=== PATIENT | female | born 1975 | race African-American/Black ===

== ENCOUNTER 2016-12-18 15:00 | Inpatient (IN) | payer OTHER ==
[~2016-12-18] VITALS: Ht 165.1 cm; Wt 63.5 kg
--- NOTE | ~2016-12-18 | DS ---
Unit #: [id number] #: [id number] Patient: MARY GODINEZ [id number] [facility] [address] [place] [address] [id number] MR#: [id number] NAME: MARY GODINEZ. ROOM: [facility] Age: 41 Sex: F Admission Date: 12/18/2016 : 1975 Discharge Date: 12/19/2016 Attending Physician: Duane Arevalo M.D. Primary Care Physician: Primary Care Physician No DISCHARGE SUMMARY REASON FOR ADMISSION Depression, anxiety. DIAGNOSTIC STUDIES LABORATORY DATA: Unremarkable except hemoglobin 8.4. HOSPITAL COURSE The patient was admitted to inpatient unit on 12/18/2016 and discharged on 12/19/2016. The patient was pleasant, cooperative. Denied any suicidal or homicidal ideation. Able to participate in programming. The patient's hemoglobin was low. That may be the reason why she was feeling tired. DISCHARGE MEDICATIONS The patient was discharged on following medications: 1. Vistaril 25 mg 3 times a day for anxiety. DISCHARGE DIAGNOSES PSYCHIATRIC: Anxiety disorder not otherwise specified, F40.01 Rule out major depressive disorder, recurrent, severe. SECONDARY: Deferred. MEDICAL: Hypertension. STRESSORS: Psychosocial stressor. FOLLOWUP CARE The patient to follow up in outpatient clinic as per social scientist. Also, advised to follow up with medical doctor for low hemoglobin. CONDITION ON DISCHARGE The patient pleasant, cooperative. Denied any thoughts of harming self or others or any psychotic symptom. Recent and remote memory: Poor. DIET AND ACTIVITY As tolerated. Dictated by... Matthew Gibson/paxton TD: 12/20/2016 06:51 JOB #: [id number] Unit #: [id number] #: [id number] Patient: MARY GODINEZ DISCHARGE SUMMARY Page 1 of 1 X Duane Arevalo MD X DISCHARGE SUMMARY
--- NOTE | ~2016-12-18 | PA ---
Unit #: [id number] #: [id number] Patient: MARELY SIMMONS [id number] [facility] [address] [place] [address] [id number] MR#: [id number] NAME: MARELY SIMMONS. ROOM: P266 Age: 41 Sex: F Admission Date: 12/18/2016 : 1975 Date of Assessment: 12/19/2016 Attending Physician: Duane Arevalo M.D. Admitting Physician: Duane Arevalo M.D. Primary Care Physician: Primary Care Physician No PSYCHIATRIC ASSESSMENT INFORMANTS The patient reliability, fair informant and chart reliability, good. CHIEF COMPLAINT Anxiety. HISTORY OF PRESENT ILLNESS Ms. Marely Simmons is a 41-year-old female, presented with the above-mentioned complaint. The patient reported increase in panic attack. The patient reports having a nervous breakdown. The patient also reported feeling sad, depressed, making vague statements about harming herself. The patient reports that she lives with her mother, 64, retired. The patient reported increasing anxiety and panic attack. She has had 20 visits in the emergency room due to increase in symptoms. She was seen in [facility] on 12/15/2016 and referred to Partial. The patient stated that she is unable to get out due to her anxiety and panic attack. The patient dealing with increased grief due to loss of her family member. The patient reports that she is on Lexapro, but it is not working. The patient denied any homicidal ideation. Passive SI. Needing inpatient admission for psychiatric stabilization. PAST PSYCHIATRIC HISTORY Remarkable for history of outpatient treatment, details unknown at this time. No history of any suicide attempt. FAMILY HISTORY AND SOCIAL HISTORY Remarkable for history of depression in mother. No known history of any abuse or legal problems. MEDICAL HISTORY Remarkable for history of hypertension. Musculoskeletal; muscle strength and tone, no atrophy or abnormal movement. Gait normal. MEDICATION HISTORY The patient is on Lexapro, Vistaril, clonidine, and nifedipine. ALLERGIES No known drug allergies. SUBSTANCE ABUSE HISTORY None. REVIEW OF SYSTEMS Unit #: [id number] #: [id number] Patient: MARELY SIMMONS HEENT: Eyes, clear. Ears, nose, mouth, and throat; clear. CARDIOVASCULAR: Unremarkable. RESPIRATORY: Unremarkable. GI: Unremarkable. : Unremarkable. SKIN: Unremarkable. LYMPH NODE: Unremarkable. NEUROLOGIC: Unremarkable. ENDOCRINE: Unremarkable. HEMATOLOGIC: Unremarkable. ALLERGIC/IMMUNOLOGIC: Unremarkable. MUSCULOSKELETAL: Muscle strength and tone, no atrophy or abnormal movement. Gait normal. MENTAL STATUS EXAMINATION CONSTITUTIONAL: Measurement of vital signs; temperature 98.8, heart rate 80, respiratory rate 19, oxygen saturation 98%, and blood pressure 130/98. Height 5 feet 5 inches and weight 140 pounds. GENERAL APPEARANCE: The patient dressed casually. The patient not show any facial deformity. MUSCULOSKELETAL: Please see above. PSYCHIATRIC EXAMINATION Description of speech; regular rate, normal volume, normal articulation, and coherent. Description of thought process, goal directed. The patient denied any thoughts of harming self or others at this time. Denied any psychotic symptom, but reported anxiety and panic attack. Description of the patient's judgment: Concerning everyday activity, poor. Social situation, poor. Concerning psychiatric condition, poor. Complete mental status examination; oriented in time, place, and person. Recent and remote memory, fair. Attention span and concentration, fair. Language, able to name object and repeat phrases. Fund of knowledge, aware of current event and passive vocabulary intact. Mood and affect, sad and dysphoric. Insight and judgment, fair to poor. ASSETS AND LIABILITIES Assets, the patient is articulate and able to take care of her ADL. Liability, history of depression and anxiety. ADMITTING DIAGNOSES Psychiatric: Major depressive disorder, recurrent, severe, F33.2 and anxiety disorder, not otherwise specified, F40.01. Secondary diagnosis: Deferred. Medical diagnosis: Hypertension. Stressors: Psychosocial stressors. PSYCHIATRIC PLAN AND TREATMENT GOAL AND DISCHARGE PLAN 1. Advised to admit the patient on the inpatient unit. Provide safe, supportive, and structured environment. 2. Ordered labs; CBC, CMP, UA, and UDS. 3. Advised to discontinue Lexapro and consider medication such as Vistaril. The patient was agreeable for outpatient treatment. The patient to attend group therapy, individual therapy, and structured milieu. Treatment goal to attain euthymic mood, gain insight into her Unit #: [id number] #: [id number] Patient: MARELY SIMMONS problem, and learn coping skills. DISCHARGE PLAN Plan to stabilize the patient and consider followup in outpatient program. ESTIMATED LENGTH OF STAY 2 to 3 days. Dictated by... Matthew Gibson/mona TD: 12/19/2016 16:13 JOB #: [id number] PSYCHIATRIC ASSESSMENT Page 1 of 1 X Duane Arevalo MD PSYCHIATRIC ASSESSMENT
--- NOTE | ~2016-12-18 | HP ---
Unit #: [id number] #: [id number] Patient: MARELY GODINEZ [id number] [place] [address] [id number] MR#: [id number] NAME: MARELY GODINEZ. ROOM: P266 Age: 41 Sex: F Admission Date: 12/18/2016 : 1975 Attending Physician: Duane Arevalo M.D. Admitting Physician: Duane Arevalo M.D. Primary Care Physician: Primary Care Physician No HISTORY AND PHYSICAL Marely is a 41 year old who was admitted and discharged within the first 24 hours. She was not seen for an H and P. Dictated by... Sara Valerio P.A.-C. for Matthew Joshua/susannah TD: 12/19/2016 18:36 JOB #: [id number] HISTORY AND PHYSICAL Page 1 of 1 X Sara Valerio HISTORY AND PHYSICAL
[2016-12-19 12:43] LABS: BASOPHIL# 0.1 X10e3 (0-0.3); BASOPHIL% 1.4 % (0-2.5); EOSINOPHIL# 0.1 X10e3 (0-0.7); EOSINOPHIL% 1.1 % (0.0-7.0); HEMATOCRIT 26.8 % (35.0-45.0); HEMOGLOBIN 8.4 gm/dL (12.0-16.0); LYMPHOCYTE# 0.9 X10e3 (1.0-3.5); LYMPHOCYTE% 14.2 % (17.0-45.0); MEAN CELL VOLUME 78.4 FL (83-96); MEAN CORPUSCULAR HEMOGLOBIN 24.5 PG (28-34); MEAN CORPUSCULAR HGB CONC 31.3 g/dL (30-36); MEAN PLATELET VOLUME 8.8 FL (6.5-11.5); MONOCYTE# 0.5 X10e3 (0-1.0); MONOCYTE% 8.3 % (3.0-12.0); NEUTROPHIL# 4.9 X10e3 (1.5-7.1); PLATELET COUNT 374 X10e3 (140-420); RED BLOOD COUNT 3.42 X10e (3.90-5.30); RED CELL DISTRIBUTION WIDTH 23.8 % (11.0-15.5); WHITE BLOOD COUNT 6.6 X10e3 (4.0-10.5)
[2016-12-19 12:44] LABS: DIFF IND YES
[2016-12-19 13:01] LABS: HYPOCHROMIA MOD; MICROCYTOSIS MOD; PLATELET ESTIMATE NORMAL (NORMAL)
[2016-12-19 13:06] LABS: ALBUMIN SERUM 3.9 g/dL (3.5-5.0); BILIRUBIN,TOTAL 0.8 mg/dL (0.2-2.0); BUN/CREATININE RATIO 10.9; CALCIUM SERUM 9.3 mg/dL (8.4-10.2); CREATININE SERUM 1.1 mg/dL (0.6-1.4); GLOM FILT RATE Estimated 72.8 mL/min (>60); POTASSIUM 4.1 mmol/L (3.5-5.1); PROTEIN TOTAL SERUM 6.4 g/dL (6.0-8.3)
== END 2016-12-19 16:00 | disposition home or self-care (01) | DRG 880 ==
LOC: P2L 20:10
PROVIDERS: Psychiatry & Neurology Psychiatry
DX: F41.9 Anxiety disorder, unspecified (principal); F33.2 Major depressive disorder, recurrent severe without psychotic features; I10 Essential (primary) hypertension
CPT/HCPCS: 80053; 84703; 85025